=== PATIENT | female | born 1965 | race Caucasian/White ===

== ENCOUNTER 2023-08-06 02:47 | Emergency (ER) | payer MEDICAID ==
[~2023-08-06] VITALS: Ht 160 cm; Wt 53.0 kg
[2023-08-06 03:01] VITALS: O2SAT 96
[2023-08-06] MEDS: PREDNISONE 20MG TABLET PO ONE (03:56)
[2023-08-06] MEDS: DIPHENHYDRAMINE 25MG CAPSULE PO ONE (03:56)
[2023-08-06 04:20] LABS: CLARITY URINE CLEAR (CLEAR); COLOR URINE YELLOW (YELLOW); GLUCOSE URINE 3+ (NEGATIVE); KETONES URINE TRACE (NEGATIVE); LEUKOCYTE ESTERASE URINE NEGATIVE (NEGATIVE); NITRITE URINE NEGATIVE (NEGATIVE); OCCULT BLOOD URINE NEGATIVE (NEGATIVE); PH URINE 5.5 (4.5-8.0); PROTEIN URINE NEGATIVE (NEGATIVE); SPECIFIC GRAVITY URINE 1.055 (1.005-1.030); UROBILINOGEN URINE 0.2 E.U./dL (0.2-1.0)
[2023-08-06] MEDS ORDERED: FAMO-135 MT (05:03)
[2023-08-06] MEDS ORDERED: DIPH25TA62 MT (05:03)
[2023-08-06] MEDS ORDERED: PRED10TA MT (05:03)
[2023-08-06] MEDS ORDERED: EPIN0.3P3 IM (05:04)
[2023-08-06 05:13] VITALS: BP 107/67; PULSE 82; RESP 20; TEMP 98.7
[2023-08-06 05:39] LABS: BACTERIA URINE 1+; RBC URINE 0-2 /hpf (0-2); SQUAMOUS EPITHELIAL CELL URINE 1+ /lpf (RARE/1+); WBC URINE 0-2 /hpf (0-2)
== END 2023-08-06 05:19 | disposition home or self-care (01) ==
LOC: ER 02:47
DX: T78.40XA Allergy, unspecified, initial encounter (principal); E11.9 Type 2 diabetes mellitus without complications; Z00.00 Encounter for general adult medical examination without abnormal findings; Z98.890 Other specified postprocedural states; X58.XXXA Exposure to other specified factors, initial encounter
CPT/HCPCS: 99283; 81003; 81025; Q0163; J7512

== ENCOUNTER 2024-12-29 21:41 | Emergency (ER) | payer BC, MEDICAID ==
[~2024-12-29] VITALS: Ht 160 cm; Wt 73.0 kg
[~2024-12-29 21:41] MED LIST: DIPH25TA62 MT; EPIN0.3P3 IM; FAMO-135 MT; PRED10TA MT
[2024-12-29 22:04] VITALS: O2SAT 96
[2024-12-29] MEDS: SODIUM CHLORIDE 0.9% (SEPSIS BOLUS) IV ONE (22:48)
[2024-12-29] MEDS: PIPERACILLIN/TAZO 3.375G/50ML 50 ML IV ONE (22:49)
[2024-12-29 23:12] LABS: BASOPHILS % 0.8 % (0.0-2.0); EOSINOPHILS % 2.4 % (0.0-5.0); HEMATOCRIT. 31.4 % (36.0-48.0); HEMOGLOBIN. 10.7 g/dL (12.0-16.0); LYMPHOCYTES % 21.1 % (20.0-50.0); MEAN PLATELET VOLUME 8.6 fl (7.4-10.4); MONOCYTES % 8.8 % (2.0-8.0); NEUTROPHILS % 66.9 % (40.0-76.0); PLATELET 312 x1000/uL (130-400); RED BLOOD CELL COUNT 3.31 mill/uL (4.2-5.4); RED CELL DISTRIBUTION WIDTH 13.9 % (11.6-14.6)
[2024-12-29] MEDS: KETOROLAC 15MG/ML VIAL IV ONE (23:20)
[2024-12-29] MEDS: VANCOMYCIN 1G PREMIX 200 ML IV ONE (23:21)
[2024-12-29] MEDS: ONDANSETRON HCL 4MG/2ML INJ IV ONE (23:21)
[2024-12-29 23:24] LABS: CREATININE 0.6 mg/dL (0.6-1.0); INR 0.9; UREA NITROGEN BLOOD 6 mg/dL (9-23)
[2024-12-29 23:25] LABS: TROPONIN I HIGH SENSITIVITY < 4 ng/L (3.0-34)
[2024-12-29 23:26] LABS: ASPARTATE AMINOTRANSFERASE 9 IU/L (<34); BILIRUBIN DIRECT < 0.1 mg/dL (<=3.0); BILIRUBIN TOTAL 0.2 mg/dL (0.1-1.0); PROTEIN TOTAL 6.4 g/dL (6.0-8.3)
[2024-12-30] MEDS: KETOROLAC 15MG/ML VIAL IV ONE (00:34)
[2024-12-30] MEDS ORDERED: IBUP-1455 MT (01:15)
[2024-12-30 01:17] VITALS: BP 129/77; PULSE 89; RESP 17; TEMP 36.9; O2SAT 95
[2024-12-30 01:19] LABS: CLARITY URINE CLEAR (CLEAR); COLOR URINE YELLOW (YELLOW); PH URINE 7.0 (4.5-8.0); SPECIFIC GRAVITY URINE 1.006 (1.005-1.030)
[2024-12-30 01:20] LABS: GLUCOSE URINE 2+ (NEGATIVE); KETONES URINE NEGATIVE (NEGATIVE); LEUKOCYTE ESTERASE URINE 1+ (NEGATIVE); NITRITE URINE NEGATIVE (NEGATIVE); OCCULT BLOOD URINE 2+ (NEGATIVE); PROTEIN URINE NEGATIVE (NEGATIVE); UROBILINOGEN URINE 0.2 E.U./dL (0.2-1.0)
[2024-12-30] MEDS ORDERED: FAMO20TA8 MT (01:28)
[2024-12-30 07:01] LABS: BACTERIA URINE NONE SEEN; SQUAMOUS EPITHELIAL CELL URINE 1+ /lpf (RARE/1+)
[2024-12-30 07:02] LABS: RBC URINE NONE SEEN /hpf (0-2); YEAST URINE 1+
== END 2024-12-30 01:30 | disposition home or self-care (01) ==
LOC: ER 21:41 → CMPBEDREQ 12-30 08:53
DX: R10.31 Right lower quadrant pain (principal); E11.9 Type 2 diabetes mellitus without complications; Z90.49 Acquired absence of other specified parts of digestive tract; Z90.710 Acquired absence of both cervix and uterus
CPT/HCPCS: 99285; 96365; 96375; 71045; 96367; 96366; 80076; 80048; 87106; 83605; 85025; 85610; 87040; 84484; 36415; 84145; 93005; 74176; 81003; 87086; 96376; J1885 ×2; J2405; J2543; J3373; J7030